=== PATIENT | female | born 1995 | race Two or more races ===

== ENCOUNTER 2018-12-17 17:25 | Inpatient (IN) | payer MEDICAID, OTHER ==
[~2018-12-17] VITALS: Ht 157.5 cm; Wt 68.9 kg
[2018-12-17] MEDS ORDERED: DEXT 5%/LR + PITOCIN 20UNITS/L 1,000 ML IV SCH ×2 (18:01→20:06)
[2018-12-17] MEDS ORDERED: LACTATED RINGERS 1,000 ML IV SCH (18:01)
[2018-12-17] MEDS ORDERED: NALOXONE HCL 0.4 MG/ML 1ML VIAL IM PRN (18:15)
[2018-12-17] MEDS ORDERED: METHYLERGONOVINE MALEATE 0.2 MG/ML IM PRN (18:15)
[2018-12-17] MEDS ORDERED: CARBOPROST TROMETHAMINE 250 MCG/ML AMPUL IM PRN (18:15)
[2018-12-17] MEDS ORDERED: FENTANYL CITRATE/PF 50MCG/ML 2ML VIAL ONE (18:27)
[2018-12-17] MEDS ORDERED: PHENYLEPHRINE HCL 10 MG/ML 1ML (IV VIAL) IV ONE (18:27)
[2018-12-17] MEDS ORDERED: CEFAZOLIN SODIUM 1000MG/VIAL ONE (18:27)
[2018-12-17] MEDS ORDERED: EPHEDRINE SULFATE 50MG/ML VIAL ONE (18:27)
[2018-12-17] MEDS ORDERED: MORPHINE SULFATE/PF 1MG/ML 10ML AMP ONE (18:27)
[2018-12-17] MEDS ORDERED: OXYTOCIN 10 UNITS/ML 1ML ONE (18:27)
[2018-12-17] MEDS ORDERED: GLYCOPYRROLATE 0.2 MG/ML 2ML VIAL ONE (18:27)
[2018-12-17] MEDS ORDERED: ONDANSETRON HCL 4MG/2ML INJ ONE ×2 (18:27→19:31)
[2018-12-17] MEDS ORDERED: CITRIC ACID/SODIUM CITRATE SOLN 30ML UDC PO ONE (18:45)
[2018-12-17 19:01] LABS: BASOPHILS % 0.5 % (0.0-2.0); EOSINOPHILS % 0.8 % (0.0-5.0); HEMATOCRIT. 32.2 % (36.0-48.0); HEMOGLOBIN. 10.6 g/dL (12.0-16.0); LYMPHOCYTES % 21.6 % (20.0-50.0); MEAN CORPUSCULAR HEMOGLOBIN 25.9 pg (28.0-32.0); MEAN CORPUSCULAR VOLUME 78.4 fL (81.0-99.0); MEAN PLATELET VOLUME 9.5 fl (7.4-10.4); MONOCYTES % 5.2 % (2.0-8.0); NEUTROPHILS % 71.9 % (40.0-76.0); PLATELET 153 x1000/uL (130-400); RED BLOOD CELL COUNT 4.11 mill/uL (4.2-5.4); RED CELL DISTRIBUTION WIDTH 15.6 % (11.6-14.6)
[2018-12-17 19:05] LABS: CLARITY URINE CLEAR (CLEAR); COLOR URINE YELLOW (YELLOW); KETONES URINE 3+ (NEGATIVE); LEUKOCYTE ESTERASE URINE NEGATIVE (NEGATIVE); NITRITE URINE NEGATIVE (NEGATIVE); OCCULT BLOOD URINE NEGATIVE (NEGATIVE); PROTEIN URINE NEGATIVE (NEGATIVE); SPECIFIC GRAVITY URINE 1.022 (1.005-1.030)
[2018-12-17 19:07] LABS: INR 0.9; PROTHROMBIN TIME 9.4 sec (9.6-11.0)
[2018-12-17 19:16] LABS: *AMPHETAMINES SCREEN URINE NEGATIVE (NEGATIVE); *BARBITURATES SCREEN URINE NEGATIVE (NEGATIVE); *BENZODIAZEPINES SCREEN URINE NEGATIVE (NEGATIVE); *COCAINE SCREEN URINE NEGATIVE (NEGATIVE); METHADONE URINE SCREEN NEGATIVE (NEGATIVE); OPIATES URINE SCREEN NEGATIVE (NEGATIVE); PHENCYCLIDINE URINE SCREEN NEGATIVE (NEGATIVE)
[2018-12-17 19:17] LABS: CANNABINOID URINE SCREEN NEGATIVE (NEGATIVE)
[2018-12-17 19:48] LABS: HEPATITIS B SURFACE ANTIGEN NEGATIVE
[2018-12-17] MEDS ORDERED: METOCLOPRAMIDE HCL 10MG/2ML VIAL ONE (19:52)
[2018-12-17] MEDS ORDERED: KETOROLAC 60MG/2ML VIAL IM ONE (19:52)
[2018-12-17] MEDS ORDERED: LANOLIN OINT 7GM TUBE TOP PRN (20:15)
[2018-12-17] MEDS ORDERED: ACETAMINOPHEN WITH CODEINE 300/30MG TABLET PO PRN (20:15)
[2018-12-17] MEDS ORDERED: IBUPROFEN 400MG TABLET PO PRN (20:15)
[2018-12-17] MEDS ORDERED: BISACODYL 10MG SUPP PR PRN (20:15)
[2018-12-17] MEDS ORDERED: ONDANSETRON HCL 4MG/2ML INJ IV PRN (20:15)
[2018-12-17] MEDS ORDERED: HEMORRHOIDAL SUPP PR PRN (20:15)
[2018-12-17] MEDS ORDERED: NALOXONE HCL 0.4 MG/ML 1ML VIAL IV PRN (20:30)
[2018-12-17] MEDS ORDERED: BUTORPHANOL TARTRATE 2 MG/ML VIAL IV PRN (20:30)
[2018-12-17] MEDS: MAGNESIUM/ALUMINUM HYDROXIDE/SIMETHICONE 30ML UDC PO SCH (21:30)
[2018-12-17 22:30] VITALS: BP 108/53
[2018-12-17] MEDS ORDERED: PREN1TAB78 MT (23:27)
[2018-12-17 23:30] VITALS: BP 108/65
[2018-12-18] MEDS: DIPHENHYDRAMINE 50MG/ML VIAL IV PRN ×2 (00:19→06:29)
[2018-12-18] MEDS: KETOROLAC 30MG/ML VIAL IV SCH ×4 (02:00→18:00)
[2018-12-18 03:30] VITALS: BP 112/55
[2018-12-18 06:50] LABS: BASOPHILS % 0.5 % (0.0-2.0); EOSINOPHILS % 0.8 % (0.0-5.0); HEMATOCRIT. 28.3 % (36.0-48.0); HEMOGLOBIN. 9.5 g/dL (12.0-16.0); LYMPHOCYTES % 17.1 % (20.0-50.0); MEAN CORPUSCULAR HEMOGLOBIN 26.1 pg (28.0-32.0); MEAN CORPUSCULAR VOLUME 77.8 fL (81.0-99.0); MEAN PLATELET VOLUME 9.5 fl (7.4-10.4); MONOCYTES % 4.9 % (2.0-8.0); NEUTROPHILS % 76.7 % (40.0-76.0); PLATELET 142 x1000/uL (130-400); RED BLOOD CELL COUNT 3.64 mill/uL (4.2-5.4); RED CELL DISTRIBUTION WIDTH 15.5 % (11.6-14.6)
[2018-12-18] MEDS: FERROUS SULFATE 325MG TABLET PO SCH ×3 (07:30→20:18)
[2018-12-18 08:16] VITALS: BP 98/56
[2018-12-18] MEDS: PRENATAL VIT/FE FUMARATE/FA TABLET PO SCH (11:20)
[2018-12-18] MEDS: MAGNESIUM/ALUMINUM HYDROXIDE/SIMETHICONE 30ML UDC PO SCH ×2 (11:21→17:30)
[2018-12-18] MEDS: SIMETHICONE 80MG TABLET CHEW PO SCH ×2 (11:22→20:19)
[2018-12-18 15:25] VITALS: BP 96/54
[2018-12-18 20:00] VITALS: BP 102/60
[2018-12-18] MEDS ORDERED: HYDROCODONE/ACETAMINOPHEN 5/325MG TABLET PO PRN (20:15)
[2018-12-18] MEDS: DOCUSATE SODIUM 100MG CAPSULE PO SCH (21:40)
[2018-12-18] MEDS: ACETAMINOPHEN WITH CODEINE 300/30MG TABLET PO PRN (21:52)
[2018-12-19] VITALS: BP 105/65
[2018-12-19 04:00] VITALS: BP 103/62
[2018-12-19] MEDS: MAGNESIUM/ALUMINUM HYDROXIDE/SIMETHICONE 30ML UDC PO SCH ×5 (07:30→21:01)
[2018-12-19] MEDS: SIMETHICONE 80MG TABLET CHEW PO SCH ×5 (08:00→21:02)
[2018-12-19] MEDS: PRENATAL VIT/FE FUMARATE/FA TABLET PO SCH (08:32)
[2018-12-19] MEDS: FERROUS SULFATE 325MG TABLET PO SCH ×3 (08:32→18:36)
[2018-12-19 08:38] VITALS: BP 109/66
[2018-12-19] MEDS: ACETAMINOPHEN WITH CODEINE 300/30MG TABLET PO PRN ×2 (10:51→20:30)
[2018-12-19 17:00] VITALS: BP 102/67
[2018-12-19 19:50] VITALS: BP 117/73
[2018-12-19] MEDS: DOCUSATE SODIUM 100MG CAPSULE PO SCH (21:02)
[2018-12-19] MEDS ORDERED: BISACODYL 5MG TABLET PO PRN ×2 (21:30→22:00)
[2018-12-20 04:00] VITALS: BP 108/61
[2018-12-20] MEDS: FERROUS SULFATE 325MG TABLET PO SCH (09:28)
[2018-12-20 09:29] VITALS: BP 108/61
[2018-12-20] MEDS: ACETAMINOPHEN WITH CODEINE 300/30MG TABLET PO PRN (09:29)
[2018-12-20] MEDS: SIMETHICONE 80MG TABLET CHEW PO SCH (09:29)
[2018-12-20] MEDS: MAGNESIUM/ALUMINUM HYDROXIDE/SIMETHICONE 30ML UDC PO SCH (09:29)
== END 2018-12-20 11:45 | disposition home or self-care (01) | DRG 540 ==
LOC: OBSVTOIN 17:25 → 8 EST LDRP 17:25 → 8EST 19:10
PROVIDERS: ADMIT Specialist; ATTEND Specialist
PROC: 10D00Z1 Extraction of Products of Conception, Low, Open Approach (ICD-10-PCS; principal; 2018-12-17)
DX: O32.1XX0 Maternal care for breech presentation, not applicable or unspecified (principal); O48.0 Post-term pregnancy; Z37.0 Single live birth; Z3A.40 40 weeks gestation of pregnancy; Z98.51 Tubal ligation status; O69.81X0 Labor and delivery complicated by cord around neck, without compression, not applicable or unspecified
CPT/HCPCS: 36415; 80305; 81003; 86592; 86703; 86762; 86850; 86900; 86920; 87340; 88307; G0378; J0690; J1200; J1885; J2274; J2370; J2405; J2590; J2765; J3010; J3490